=== PATIENT | female | born 1985 | race American Indian/Alaskan Native ===

== ENCOUNTER 2017-03-23 17:54 | Outpatient (CLI) | payer MEDICAID ==
[2017-03-23] MEDS ORDERED: LACTATED RINGERS 500 ML IV ONE (18:16)
[2017-03-23] MEDS ORDERED: LACTATED RINGERS 1,000 ML ONE (18:17)
[2017-03-23 18:25] VITALS: BP 115/72
[2017-03-23] MEDS ORDERED: LACTATED RINGERS 1,000 ML IV SCH (19:00)
[2017-03-23 19:02] LABS: Mucus,Urine FEW /HPF
[2017-03-23 19:09] LABS: Bilirubin,Urine NEG (Negative); Blood,Urine NEG (Negative); Ketones,Urine NEG (Negative); Leukocyte Esterase,Urine SM (Negative); Nitrite,Urine NEG (Negative); Protein,Urine <15 mg/dL mg/dL (Negative); Urobilinogen,Urine < 2.0 mg/dL (<2.0)
== END 2017-03-23 20:02 | disposition home or self-care (01) ==
LOC: TRG 17:54
PROVIDERS: ATTEND Obstetrics & Gynecology
DX: O47.02 False labor before 37 completed weeks of gestation, second trimester (principal); Z3A.26 26 weeks gestation of pregnancy
CPT/HCPCS: 59025; 81001; 96360; J7120

== ENCOUNTER 2017-06-28 17:44 | Outpatient (CLI) | payer MEDICAID ==
[2017-06-28 18:18] VITALS: BP 118/70
[2017-06-28 19:13] LABS: Urine Drugs of Abuse Note Disclamer
[2017-06-28 19:28] LABS: Bilirubin,Urine NEG (Negative); Blood,Urine NEG (Negative); Ketones,Urine TR mg/dL (Negative); Leukocyte Esterase,Urine NEG (Negative); Mucus,Urine FEW /HPF; Nitrite,Urine NEG (Negative); Protein,Urine <15 mg/dL mg/dL (Negative); Urobilinogen,Urine < 2.0 mg/dL (<2.0)
[2017-06-28] MEDS ORDERED: LACTATED RINGERS 1,000 ML IV ONE (19:40)
[2017-06-28] MEDS ORDERED: LACTATED RINGERS 1,000 ML ONE (19:43)
== END 2017-06-28 21:15 | disposition home or self-care (01) ==
LOC: TRG 17:44
PROVIDERS: ATTEND Obstetrics & Gynecology Gynecology
CPT/HCPCS: 59025; 80307 ×2; 81001 ×2; 96360 ×2; J7120